=== PATIENT | male | born 1970 | race Caucasian/White ===

== ENCOUNTER → 2020-07-21 09:09 | Outpatient (CLI) | payer BC, OTHER, SELFPAY ==
--- NOTE | ~2020-07-21 | MR_ITS ---
. EXAMINATION: MR shoulder LT wo con DATE: 07/21/2020 09:51 INDICATION: Left shoulder pain. TECHNIQUE: Magnetic resonance imaging (MRI) of the left shoulder was performed without intravenous co ntrast. Sequences included axial PD-weighted FS FSE, coronal oblique PD-weighted FS FSE and T2-weight ed FS FSE, and sagittal oblique T2-weighted FS FSE and T1-weighted FSE. COMPARISON: None. FINDINGS: Coracoacromial arch: The acromion undersurface is curved in morphology (type II). Subacromial spurring is noted. There is severe acromioclavicular joint osteoarthritis. There is severe subacromial/subdeltoid bursitis with a 7 mm loose body. Rotator cuff: There is a bursal-sided partial-thickness tear of supraspinatus tendon measuring 13 mm anterior to po sterior by 8 mm proximal to distal by 80% tendon thickness. There is a small partial tear at the infr aspinatus myotendinous junction. Teres minor tendon is normal. There is moderate subscapularis tendin opathy. There is a partial thickness tear of subscapularis tendon. There is no asymmetric fatty atrop hy of the rotator cuff muscle bellies. Biceps tendon and glenoid labrum: The biceps tendon is in the bicipital groove. Intra-articular biceps tendon is normal. The glenoid la bossman is normal. Fluid: There is a small glenohumeral joint effusion. Bones/cartilage: The glenoid cartilage is normal. Humeral head cartilage is normal. IMPRESSION: 1. Rotator cuff tendinopathy with partial tears of supraspinatus and subscapularis tendons. Small par tial tear of the infraspinatus myotendinous junction. 2. Severe subacromial/subdeltoid bursitis with loose body. 3. Severe acromioclavicular joint osteoarthritis. 4. Small glenohumeral joint effusion. Reviewed, dictated and finalized at location A. [employer] IMPRESSION: 1. Rotator cuff tendinopathy with partial tears of supraspinatus and subscapula ris tendons. Small partial tear of the infraspinatus myotendinous junction. 2. Severe subacromial/subdeltoid bursitis with loose body. 3. Severe acromioclavicular joint osteoarthritis. 4. Small glenohumeral joint effusion.
== END ==
PROVIDERS: Visit Provider Physician Assistant
DX: M19.012 Primary osteoarthritis, left shoulder (principal); M25.412 Effusion, left shoulder; M75.52 Bursitis of left shoulder
CPT/HCPCS: 73221

== ENCOUNTER 2021-07-16 13:54 | Outpatient (CLI) | payer BC, SELFPAY ==
--- NOTE | ~2021-07-16 | XR_ITS ---
EXAMINATION: XR foot RT min 3V DATE: 07/16/2021 14:18 INDICATION: Right foot pain TECHNIQUE: Dorsoplantar, lateral, and 2 oblique views of the right foot were obtained. COMPARISON: None. FINDINGS: There is no fracture, dislocation, or subluxation. Mild osteoarthritis is noted in multiple interphalangeal joints. The soft tissues are unremarkable. Calcified atherosclerosis is noted. IMPRESSION: 1. No acute osseous abnormality. Reviewed, dictated and finalized at location B. [employer]ERGY
== END 2021-07-16 13:55 | disposition home or self-care (01) ==
LOC: CHSIMG 13:57
PROVIDERS: PCP Family Medicine; Visit Provider Family Medicine
DX: M79.671 Pain in right foot (principal)
CPT/HCPCS: 73630